=== PATIENT | male | born 1945 | race Caucasian/White ===

== ENCOUNTER → 2016-07-11 | Outpatient (CLI) | payer MEDICARE | LOC: LAB 14:23 | DX: Z51.81 Encounter for therapeutic drug level monitoring (principal); Z79.899 Other long term (current) drug therapy ==

== ENCOUNTER 2017-09-30 14:41 | Inpatient (IN) | payer MEDICARE ==
[~2017-09-30] VITALS: Ht 175.3 cm; Wt 61.3 kg
[2017-09-30 18:36] VITALS: BP 138/79
[2017-09-30 19:00] VITALS: BP 138/79
[2017-09-30 20:52] LABS: URINE APPEARANCE CLEAR; URINE COLOR YELLOW
[2017-09-30 20:54] LABS: URINE BILIRUBIN NEGATIVE (NEGATIVE); URINE BLOOD NEGATIVE (NEGATIVE); URINE GLUCOSE NEGATIVE (NEGATIVE); URINE KETONE NEGATIVE (NEGATIVE); URINE LEUKOCYTE ESTERASE NEGATIVE (NEGATIVE); URINE MUCUS PRESENT (NOT PRESENT); URINE NITRATE NEGATIVE (NEGATIVE); URINE PROTEIN(semi-quant) TRACE mg/dL (NEGATIVE); URINE UROBILINOGEN NORMAL (NORMAL); URINE WBC 0-1 /hpf (0-3)
[2017-10-01 06:15] LABS: HEMATOCRIT 31.7 % (42.0-52.0); HEMOGLOBIN 10.3 g/dL (13.5-18.0); MEAN CELL VOLUME 89 fl (78-100); MEAN CORPUSCULAR HEMOGLOBIN 29 pg (27-31); MEAN CORPUSCULAR HGB CONC 33 g/dL (33-37); MEAN PLATELET VOLUME 9.4 fl (7.4-10.4); PLATELET COUNT 300 K/mm3 (130-400); RED BLOOD COUNT 3.55 M/mm3 (4.20-5.60); RED CELL DISTRIBUTION WIDTH 13.6 % (11.5-14.5); WHITE BLOOD COUNT 8.6 K/mm3 (4.8-10.8)
[2017-10-01 06:34] VITALS: BP 140/75
[2017-10-01 06:39] LABS: ALBUMIN 3.4 g/dL (3.5-5.0); BUN/CREATININE RATIO 18.6 (6.0-26.0); CALCIUM 8.9 mg/dL (8.4-10.2); LYMPHOCYTE 14 % (20-51); MONOCYTE 8 % (3-10); NEUTROPHILS 75 % (42-75); POTASSIUM 3.8 mmol/L (3.6-5.0); TOTAL PROTEIN 6.8 g/dL (6.3-8.2)
[2017-10-01 18:06] VITALS: BP 106/57
[2017-10-02] MEDS ORDERED: QVAR8.7 GM INH (03:33)
[2017-10-02] MEDS ORDERED: PROAIR HFA0.09 MG/AC IH (03:34)
[2017-10-02] MEDS ORDERED: ATORVASTATIN CA20 MG PO (03:35)
[2017-10-02] MEDS ORDERED: ALENDRONATE SOD70 MG PO (03:35)
[2017-10-02] MEDS ORDERED: OS-CAL 500+D31 EACH (03:36)
[2017-10-02 06:29] VITALS: BP 141/79
[2017-10-02 17:53] VITALS: BP 120/73
[2017-10-03 06:29] VITALS: BP 133/77
[2017-10-03 18:26] VITALS: BP 125/67
[2017-10-04 06:00] VITALS: BP 137/93
[2017-10-04 18:38] VITALS: BP 118/71
[2017-10-05 06:44] VITALS: BP 147/79
[2017-10-05 18:10] VITALS: BP 115/66
[2017-10-06 06:39] VITALS: BP 119/67
[2017-10-06 17:57] VITALS: BP 113/70
[2017-10-07 06:30] VITALS: BP 142/78
[2017-10-07 18:17] VITALS: BP 105/55
[2017-10-08 06:23] VITALS: BP 122/73
[2017-10-08] MEDS ORDERED: ENOXAPARIN40 MG/0.1 SQ (08:48)
[2017-10-08] MEDS ORDERED: OXYCODONE PO (08:49)
[2017-10-08] MEDS ORDERED: MEDI-FIRST ASP325 MG PO (10:25)
== END 2017-10-08 13:13 | disposition home health service (06) | DRG 561 ==
LOC: MED/SURG 14:41
PROVIDERS: Nurse Practitioner; ADMIT Physician Assistant
DX: S32.402D Unspecified fracture of left acetabulum, subsequent encounter for fracture with routine healing (principal); S52.022D Displaced fracture of olecranon process without intraarticular extension of left ulna, subsequent encounter for closed fracture with routine healing; W10.9XXD Fall (on) (from) unspecified stairs and steps, subsequent encounter; S30.0XXD Contusion of lower back and pelvis, subsequent encounter; J45.909 Unspecified asthma, uncomplicated; S01.312D Laceration without foreign body of left ear, subsequent encounter
CPT/HCPCS: J1650

== ENCOUNTER → 2018-01-02 | Outpatient (CLI) | payer MEDICARE ==
[~2018-01-02] MED LIST: ALENDRONATE SOD70 MG PO; ATORVASTATIN CA20 MG PO; ENOXAPARIN40 MG/0.1 SQ; MEDI-FIRST ASP325 MG PO; OS-CAL 500+D31 EACH; OXYCODONE PO; PROAIR HFA0.09 MG/AC IH; QVAR8.7 GM INH
[2018-01-02 10:12] LABS: BASO # 0.1 (0.02-0.10); HEMATOCRIT 41.5 % (42.0-52.0); HEMOGLOBIN 13.6 g/dL (13.5-18.0); LYMPH# 1.1 (1.50-4.00); MEAN CELL VOLUME 89 fl (78-100); MEAN CORPUSCULAR HEMOGLOBIN 29 pg (27-31); MEAN CORPUSCULAR HGB CONC 33 g/dL (33-37); MEAN PLATELET VOLUME 9.8 fl (7.4-10.4); MONO # 0.5 (0.20-0.80); NEU # 6.8 (1.40-6.50); PLATELET COUNT 274 K/mm3 (130-400); RED BLOOD COUNT 4.67 M/mm3 (4.20-5.60); RED CELL DISTRIBUTION WIDTH 14.2 % (11.5-14.5); WHITE BLOOD COUNT 9.3 K/mm3 (4.8-10.8)
[2018-01-02 10:27] LABS: EOS # 0.7 (0.04-0.40); EOS % 7.6 % (0.0-4.0)
[2018-01-02 10:30] LABS: ALBUMIN 4.4 g/dL (3.5-5.0); CALCIUM 9.5 mg/dL (8.4-10.2); POTASSIUM 4.2 mmol/L (3.6-5.0); TOTAL BILIRUBIN 0.4 mg/dL (0.2-1.3); TOTAL PROTEIN 7.9 g/dL (6.3-8.2)
== END ==
LOC: LAB 09:43
PROVIDERS: Family Medicine
DX: Z00.00 Encounter for general adult medical examination without abnormal findings (principal)

== ENCOUNTER 2018-01-07 10:30 | Outpatient (RCR) | payer MEDICARE | END 2018-01-07 11:00 | disposition home or self-care (01) | LOC: PT 10:30 | DX: S52.022D Displaced fracture of olecranon process without intraarticular extension of left ulna, subsequent encounter for closed fracture with routine healing (principal); Z96.7 Presence of other bone and tendon implants | CPT/HCPCS: G8978-GP; G8979-GP ==

== ENCOUNTER → 2018-06-16 | Outpatient (CLI) | payer MEDICARE ==
[2018-06-16 16:31] LABS: HEMATOCRIT 39.3 % (42.0-52.0); HEMOGLOBIN 12.7 g/dL (13.5-18.0); MEAN PLATELET VOLUME 9.5 fl (7.4-10.4); RED BLOOD COUNT 4.38 M/mm3 (4.20-5.60); WHITE BLOOD COUNT 8.6 K/mm3 (4.8-10.8)
[2018-06-16 16:35] LABS: DIRECT BILIRUBIN 0.3 mg/dL (0.0-0.4); TOTAL BILIRUBIN 0.4 mg/dL (0.2-1.3); TOTAL PROTEIN 7.2 g/dL (6.3-8.2)
== END ==
LOC: LAB 16:13
PROVIDERS: Physician Assistant
DX: Z79.899 Other long term (current) drug therapy (principal)

== ENCOUNTER → 2018-07-16 | Outpatient (CLI) | payer MEDICARE ==
[2018-07-16 09:42] LABS: HEMATOCRIT 40.9 % (42.0-52.0); HEMOGLOBIN 13.2 g/dL (13.5-18.0); MEAN PLATELET VOLUME 9.7 fl (7.4-10.4); RED BLOOD COUNT 4.66 M/mm3 (4.20-5.60); RED CELL DISTRIBUTION WIDTH 14.7 % (11.5-14.5); WHITE BLOOD COUNT 7.8 K/mm3 (4.8-10.8)
[2018-07-16 10:35] LABS: ALBUMIN 4.4 g/dL (3.5-5.0); DIRECT BILIRUBIN 0.3 mg/dL (0.0-0.4); TOTAL BILIRUBIN 0.3 mg/dL (0.2-1.3); TOTAL PROTEIN 7.7 g/dL (6.3-8.2)
== END ==
LOC: LAB 08:59
PROVIDERS: Dermatology
DX: Z79.899 Other long term (current) drug therapy (principal)

== ENCOUNTER → 2019-03-30 | Outpatient (CLI) | payer MEDICARE ==
[2019-03-30 09:52] LABS: HEMATOCRIT 42.5 % (42.0-52.0); HEMOGLOBIN 13.8 g/dL (13.5-18.0); MEAN CELL VOLUME 90 fl (78-100); MEAN CORPUSCULAR HEMOGLOBIN 29 pg (27-31); MEAN CORPUSCULAR HGB CONC 33 g/dL (33-37); MEAN PLATELET VOLUME 9.8 fl (7.4-10.4); PLATELET COUNT 239 K/mm3 (130-400); RED BLOOD COUNT 4.71 M/mm3 (4.20-5.60); WHITE BLOOD COUNT 8.6 K/mm3 (4.8-10.8)
[2019-03-30 09:54] LABS: ALBUMIN 4.1 g/dL (3.4-4.8)
[2019-03-30 09:55] LABS: CALCIUM 9.6 mg/dL (8.3-10.5)
[2019-03-30 09:57] LABS: TOTAL PROTEIN 7.3 g/dL (6.2-8.1)
[2019-03-30 09:58] LABS: TOTAL BILIRUBIN 0.6 mg/dL (0.2-1.2)
[2019-03-30 10:50] LABS: LYMPHOCYTE 12 % (20-51); MONOCYTE 7 % (3-10); NEUTROPHILS 78 % (42-75)
== END ==
LOC: LAB 09:17
PROVIDERS: Family Medicine
DX: Z00.00 Encounter for general adult medical examination without abnormal findings (principal); E78.00 Pure hypercholesterolemia, unspecified

== ENCOUNTER → 2021-08-27 | Outpatient (CLI) | payer MEDICARE ==
[2021-08-27 12:39] LABS: ALBUMIN 4.1 g/dL (3.4-4.8); POTASSIUM 3.8 mmol/L (3.5-5.1)
[2021-08-27 12:40] LABS: CALCIUM 10.4 mg/dL (8.3-10.5)
[2021-08-27 12:42] LABS: TOTAL PROTEIN 7.7 g/dL (6.2-8.1)
[2021-08-27 12:43] LABS: TOTAL BILIRUBIN 0.5 mg/dL (0.2-1.2)
[2021-08-27 12:45] LABS: BASO # 0.09 K/mm3 (0.02-0.10); EOS # 0.21 K/mm3 (0.04-0.40); EOS % 2.5 % (0.0-4.0); HEMATOCRIT 43.4 % (42.0-52.0); HEMOGLOBIN 14.4 g/dL (13.5-18.0); LYMPH# 0.79 K/mm3 (1.50-4.00); MEAN CELL VOLUME 88 fl (78-100); MEAN CORPUSCULAR HEMOGLOBIN 29 pg (27-31); MEAN CORPUSCULAR HGB CONC 33 g/dL (33-37); MEAN PLATELET VOLUME 10.1 fl (7.4-10.4); MONO # 0.35 K/mm3 (0.20-0.80); NEU # 7.02 K/mm3 (1.40-6.50); PLATELET COUNT 280 K/mm3 (130-400); RED BLOOD COUNT 4.94 M/mm3 (4.20-5.60); RED CELL DISTRIBUTION WIDTH 13.6 % (11.5-14.5); WHITE BLOOD COUNT 8.5 K/mm3 (4.8-10.8)
== END ==
LOC: LAB 11:57
PROVIDERS: Family Medicine
DX: Z00.00 Encounter for general adult medical examination without abnormal findings (principal); J30.1 Allergic rhinitis due to pollen; J45.909 Unspecified asthma, uncomplicated; E78.00 Pure hypercholesterolemia, unspecified; M81.0 Age-related osteoporosis without current pathological fracture; I77.1 Stricture of artery; E78.5 Hyperlipidemia, unspecified; E55.9 Vitamin D deficiency, unspecified; R73.9 Hyperglycemia, unspecified

== ENCOUNTER → 2021-11-21 | Outpatient (CLI) | payer MEDICARE | LOC: RAD 10:13 | DX: M17.12 Unilateral primary osteoarthritis, left knee (principal) ==

== ENCOUNTER → 2023-02-12 | Outpatient (CLI) | payer MEDICARE | LOC: PT 09:57 | DX: M17.12 Unilateral primary osteoarthritis, left knee (principal) ==

== ENCOUNTER 2023-03-05 07:49 | Outpatient (RCR) | payer MEDICARE | END 2023-04-03 | disposition home or self-care (01) | LOC: PT | DX: M17.12 Unilateral primary osteoarthritis, left knee (principal); Z96.652 Presence of left artificial knee joint ==

== ENCOUNTER 2023-04-04 08:00 | Outpatient (RCR) | payer MEDICARE | END 2023-05-02 13:16 | disposition home or self-care (01) | LOC: PT 08:00 | DX: M17.12 Unilateral primary osteoarthritis, left knee (principal) ==

== ENCOUNTER → 2024-01-21 | Outpatient (CLI) | payer MEDICARE ==
[2024-01-22 00:32] LABS: TESTOSTERONE 655 ng/dL (221-716)
== END ==
LOC: LAB 09:26
PROVIDERS: Family Medicine
DX: E29.1 Testicular hypofunction (principal); E55.9 Vitamin D deficiency, unspecified

== ENCOUNTER 2024-06-23 15:52 | Emergency (ER) | payer MEDICARE ==
[~2024-06-23] VITALS: Ht 175.3 cm; Wt 62.7 kg
[2024-06-23] MEDS ORDERED: Lidocaine/EPINEPHrine/Tetracaine Topical Gel 3 ML SYRINGE TOP ONE (17:00)
[2024-06-23] MEDS ORDERED: PERCOCET 325 MG1 TA2 PO (17:41)
[2024-06-23] MEDS ORDERED: oxyCODONE/Acetaminophen 5-325 MG TAB PO ONE (17:45)
[2024-06-23 17:49] VITALS: BP 112/77
== END 2024-06-23 17:50 | disposition home or self-care (01) ==
LOC: ED 15:52
DX: S22.42XA Multiple fractures of ribs, left side, initial encounter for closed fracture (principal); S51.012A Laceration without foreign body of left elbow, initial encounter; Z85.828 Personal history of other malignant neoplasm of skin; W19.XXXA Unspecified fall, initial encounter